=== PATIENT | female | born 1960 | race Caucasian/White ===

== ENCOUNTER 2025-06-10 10:04 | Day surgery (SDC) | payer OTHER, SELFPAY ==
[2025-06-04 15:08] VITALS: BMI 24.7
[2025-06-10] VITALS (7 sets, daily range): BP systolic 135–163; BP diastolic 61–81; PULSE 56–85; RESP 8–24; TEMP 36.1–36.3; O2SAT 96–100; BMI 24.1
--- NOTE | 2025-06-10 | PATH_ITS ---
[facility] Accession Number: [id number] No. of containers..01 Tissue . 01 Material submitted: . endometrium - ENDOMETRIAL CONTENTS . 01 Diagnosis: ENDOMETRIAL CONTENTS: Polypoid fragments of lower uterine segment; negative for significant atypia. [facility] 06/18/2025 0922 Local . 01 Electronically signed: . Katie Bustamante MD, Pathologist NPI- [id number] . 01 Gross description: . Received in formalin with two patient identifiers and endometrial contents. The specimen consists of a collection device and a piece of gauze with multiple calvert-white and brown soft tissue fragments measuring 2.2 x 0.7 x 0.3 cm in aggregate. The specimen is filtered and entirely submitted in cassette A1. ([id number]) /MRV 06/13/2025 1851 Local . 01 Pathologist provided ICD-10: R93.89 . 01 CPT . 063875 Specimen Comment: A courtesy copy of this report has been sent to [facility] Pathology Performed at: [address] [id number] MD Silverio Esquivel MD Phone: [phone]
--- NOTE | 2025-06-10 11:03 | PM.GYNHP.1 ---
History of Present Illness History of Present Illness Narrative: Joie Miles is a 65 year old postmenopausal female who presents for definitive surgical evaluation of abnormal pelvic US with associated scant post-coital spotting. Patient last seen in office 04/23/25. Denies significant changes in personal or family health history. Affirms desire to proceed with procedure as scheduled. [facility] Medical History (Updated 05/15/25 @ 19:08 by Lisa Sesay) Osteoarthritis (~2022) Anorexia nervosa (~1978) Restless leg syndrome (~2020) Fractures (~2021) Ankle pain (~2021) Chicken pox (~1991) GERD (gastroesophageal reflux disease) Hypertension Skin cancer Genitourinary syndrome of menopause Dyspareunia in female Abnormal pelvic ultrasound Surgical History (Updated 05/15/25 @ 19:08 by Lisa Sesay) Anesthesia H/O right knee surgery (~1968) History of ankle surgery (~2021) Status post delivery (~1991) Family History (Updated 05/15/25 @ 19:11 by Lisa Sesay) Father History of heart disease Hypertension Stroke Alzheimer's disease Mother Cancer Grandfather History of heart disease Social History Smoking Status: Never smoker alcohol intake: never Meds Home Medications and Allergies Home Medications ?Medication ?Instructions ?Recorded ?Confirmed ?Type gabapentin 300 mg capsule 600 mg PO ONCE PM PRN sleep 06/10/25 06/10/25 History lisinopril 5 mg tablet 5 mg PO DAILY 06/10/25 06/10/25 History meloxicam 7.5 mg tablet 15 mg PO DAILY PRN pain 06/10/25 06/10/25 History mometasone 200 mcg/actuation HFA 1 puff inhalation BID 06/10/25 06/10/25 History aerosol inhaler (Asmanex HFA) omeprazole 40 mg capsule,delayed 40 mg PO QAM 06/10/25 06/10/25 History release Allergies Allergy/AdvReac Type Severity Reaction Status Date / Time No Known Drug Allergies Allergy Unverified 04/23/25 09:16 Review of Systems Review of Systems ROS: Yes All systems reviewed with the patient and are negative except as otherwise documented Exam Vital Signs (past 8 hours): - 06/10/25 10:24 Temperature 97 F L Pulse Rate 65 Respiratory Rate 15 Blood Pressure 151/78 H Pulse Oximetry 100 Oxygen Delivery Method Room Air Oxygen Delivery Method Room Air Const General: cooperative, healthy appearing and comfortable Nutritional Appearance: average body habitus Orientation: alert, awake and oriented x3 Limitations: mental status not altered Resp Effort & Inspection: normal respiratory effort Cardio Pulses: normal peripheral pulses GI Palpation: soft Other: deferred Skin General: no rashes or lesions noted Neuro General: patient alert, patient awake and patient oriented x3 Extrem General: normal to inspection Psych Mental Status: mental status grossly normal Judgment: judgment good Assessment & Plan Assessment and plan (1) Abnormal pelvic ultrasound: Status: Acute Plan 65yo postmenopausal female presents for scheduled outpatient procedure, hysteroscopy with D&C for definitive surgical evaluation of recurrent low-grade PMB/PCB with associated abnormal pelvic US Pt affirms desire to proceed with procedure as scheduled anticipate dc to home, routine outpatient f/u as scheduled Time-Based Coding :: [TOTAL MINUTES] spent with patient and on the chart (including review of chart, obtaining history, exam, reviewing outside data, placing orders, documenting exam and treatment plan, and counseling patient) on [DATE].
--- NOTE | 2025-06-10 11:06 | PM.PREOP ---
Pre-operative Note Interval Note History & Physical reviewed/Exam performed by Physician: Yes Changes to H&P: No ASA Class (for procedural sedation): II
--- NOTE | 2025-06-10 11:27 | SUR.OPER ---
Lithotomy on padded OR bed, head on pillow, arms secured on padded arm boards at <90 degrees abduction. Legs secured in padded yellow fins stirrups.
--- NOTE | 2025-06-10 11:57 | PM.OP.1 ---
Operative Date/Time/Diagnoses Date of procedure: 06/10/25 Time of procedure: 11:57 Pre-op diagnosis: postmenopausal bleeding, abnormal pelvic US Post-op diagnosis: same Procedure & Clinicians Procedure: hysteroscopy, dilation and curettage, polypectomy Same procedure(s) as scheduled: Yes Indications: postmenopausal/postcoital bleeding, abnormal pelvic US Surgeon: Ana Waldrop Assisted?: No Anesthesia Type: General Operative Notes Findings: normal external female genitalia stenotic atrophic parous cervix large anterior polyp, bilateral ostia visualized Specimen(s): other (endometrial contents ) Applied: none Estimated Blood Loss (mL): 5 Blood products transfused: none Procedure in detail: Pt was taken to the operating room, transferred to OR table and anesthesia was induced with placement of LMA.? Pt had her legs placed in Andriy stirrups and an exam under anesthesia was performed. The patient was prepped and draped in a sterile fashion.? A time out was performed. ?The bladder was emptied via straight catheter in sterile fashion.? A sterile speculum was inserted into the vagina.? The cervix was visualized and grasped anteriorly using a single tooth tenaculum.? The uterus sounded to 8 cm and the cervical os was serially dilated using Gonzalez dilators up to 17f to allow for passage of the hysteroscope.? The 5mm 0 degree hysteroscope was then inserted into the uterus with findings as noted.? The small Myosure device was introduced and the endometrium including visualized pathology was fractionally resected under direct visualization. The hysteroscope was removed and the uterus was sharply curetted until a gritty texture was noted throughout.? The tenaculum was removed and hemostasis was noted at insertion sites.? The speculum was removed and hemostasis was again noted to be excellent.? The patient then had her legs taken out of stirrups.? The patient tolerated the procedure well and without difficulty.? The patient was awakened from anesthesia and taken to PACU in stable condition. Complications: none Post-operative Condition: stable Disposition: PACU Plan for aftercare: anticipate dc to home pending routine postop recovery routine outpatient f/u in office as scheduled
[2025-06-10] MEDS: LACTATED RINGERS 1,000 ML 42 ML IV ×2 (12:09→12:29)
[2025-06-10] MEDS: hydrOXYzine 50 MG/ML INJ 25 MG IM (12:22)
== END 2025-06-10 12:30 | disposition home or self-care (01) ==
PROVIDERS: PCP Student in an Organized Health Care Education/Training Program; Referring Provider Obstetrics & Gynecology; Visit Provider Obstetrics & Gynecology
PROC: 0UDB8ZZ Extraction of Endometrium, Via Natural or Artificial Opening Endoscopic (ICD-10-PCS; CPT 58558; principal; 2025-06-10 11:30)
DX: N95.0 Postmenopausal bleeding (principal); R93.89 Abnormal findings on diagnostic imaging of other specified body structures; N84.0 Polyp of corpus uteri
CPT/HCPCS: 58558; J1100; J1885; J2250; J2405; J2704; J3010; J3410